=== PATIENT | male | born 1990 | race Caucasian/White ===

== ENCOUNTER → 2017-07-07 | Outpatient (CLI) | payer BC ==
[~2017-07-07] MED LIST: LEV500 PO; LOR5 PO; METR-1 PO; NO ROUTINE MEDS; OTC ANTIHISTAMINE
--- NOTE | 2017-07-07 12:06 | RADIOLOGY IMAGING REPORT ---
FACILITY: [facility] PATIENT NAME: Garry Rodríguez : 1990 MR: [id number] V: [id number] EXAM DATE: ORDERING PHYSICIAN: BENJAMIN BECKER TECHNOLOGIST: Location: [facility] Patient: Garry Rodríguez : 1990 Visit/Account:[id number] Date of Sevice: 07/07/2017 Exam type: CHEST PA AND LAT History: Chronic cough Comparison: 10/06/2014. Findings: Both lungs are well-expanded and clear. There is no focal consolidation, pleural effusion or pneumot horax. Heart size is normal. The osseous structures are unremarkable. IMPRESSION: 1. No acute cardiopulmonary disease. Report Dictated By: Jose L Montoya MD at 07/07/2017 11:59 AM Report E-Signed By: Jose L Montoya MD at 07/07/2017 12:01 PM WSN:[email or web address]
== END ==
LOC: RAD 11:16
PROVIDERS: ATTEND Nurse Practitioner Family
DX: R05 Cough (principal)
CPT/HCPCS: 71046

== ENCOUNTER → 2017-07-08 | Outpatient (CLI) | payer BC, OTHER | LOC: RESP 02:37 | PROVIDERS: ATTEND Nurse Practitioner Family | DX: R05 Cough (principal) | CPT/HCPCS: 94060; 94726; 94729 ==

== ENCOUNTER → 2017-08-17 | Outpatient (CLI) | payer BC ==
[~2017-08-17] MED LIST changes: +BARIUM SULFATE 176 GM BTL PO ONE; +BARIUM SULFATE 340 GM POWD ONE
--- NOTE | 2017-08-17 17:58 | RADIOLOGY IMAGING REPORT ---
FACILITY: [facility] PATIENT NAME: Garry Rodríguez : 1990 MR: [id number] V: [id number] EXAM DATE: [id number] ORDERING PHYSICIAN: EDDIE NJ TECHNOLOGIST: Location: [facility] Patient: Garry Rodríguez : 1990 Visit/Account:[id number] Date of Sevice: 08/17/2017 Exam type: ESOPHAGRAM History: Hoarseness, shortness of breath since May Comparison: None. Findings: Double contrast esophagram was performed with thick and thin barium. Fluoroscopic spot images were o btained over the hypopharynx cervical and thoracic portions of the esophagus and the lower esophageal sphincter. There is no demonstration of mucosal erosions or narrowing within the esophagus. There is a small hiatal hernia. A small amount of gastroesophageal reflux was observed. The fluoroscopy d ose area product was 604.04 micro-Freedman per meter squared. IMPRESSION: 1. Small hiatal hernia and a small amount of gastroesophageal reflux although no evidence of mucosal erosion or focal narrowing. Report Dictated By: Gloria Jimenez MD at 08/17/2017 5:52 PM Report E-Signed By: Gloria Jimenez MD at 08/17/2017 5:53 PM WSN:[email or web address]
== END ==
LOC: RAD 01:19
PROVIDERS: ATTEND Otolaryngology
DX: K44.9 Diaphragmatic hernia without obstruction or gangrene (principal)
CPT/HCPCS: 74220

== ENCOUNTER 2017-11-10 00:12 | Day surgery (SDC) | payer BC ==
[~2017-11-10] VITALS: Ht 180.3 cm; Wt 134.7 kg
[~2017-11-10 00:12] MED LIST changes: +ATOR10TA24 PO; -BARIUM SULFATE 176 GM BTL PO ONE; -BARIUM SULFATE 340 GM POWD ONE; +GUAI1TBM PO; +LORA10CA3 PO; +METO25TA23 PO; +MONT10TA PO; +PANT40TA65 PO; +RANI-345 PO
[2017-11-10] MEDS ORDERED: PROPOFOL EMUL(*) 10MG/ML 20 ML 40 ML ONE (06:57)
[2017-11-10] MEDS ORDERED: GLYCOPYRROLATE 0.2MG/ML 1 ML INJ ONE (07:04)
[2017-11-10 08:17] VITALS: BP 126/84
[2017-11-10] MEDS ORDERED: LIDOCAINE/SOD BICARB 8.4% SYR ID ONE (09:20)
[2017-11-10] MEDS ORDERED: NORMOSOL R SOLN(*) 1000 ML BAG 1,000 ML IV PRN (09:20)
[2017-11-10 10:22] VITALS: BP 109/88
--- NOTE | 2017-11-10 10:24 | Short(Outpt) Discharge Summary ---
Discharge Summary Reason for Hosp/Final Diag: (1) GERD (gastroesophageal reflux disease) Status: Chronic Hospital Course & Plan: EGD completed without problems. (2) Hoarseness of voice Status: Chronic Departure Discharge to: Home, Self Care Discharge Instructions Home Meds Reported Medications Guaifenesin/Dextromethorphan (MUCINEX DM ER 1,200-60 MG TAB) 1 Each Tbmp.12hr, 1 EACH PO Q12H 10/15/17 Atorvastatin Calcium (LIPITOR) 10 Mg Tablet, 1 TAB PO QDAY, TAB 10/15/17 Pantoprazole Sodium (PANTOPRAZOLE SODIUM) 40 Mg Tablet.dr, 2 TAB PO QDAY, TAB.SR 10/15/17 Metoprolol Succinate (METOPROLOL SUCCINATE) 25 Mg Tab.er.24h, 1 TAB PO QDAY, TAB 10/15/17 Loratadine (CLARITIN) 10 Mg Capsule, 1 TAB PO QDAY Y for PRN, CAPSULE 10/15/17 Discontinued Reported Medications Ranitidine Hcl (WAL-MAYKEL 150) 150 Mg Tablet, 1 TAB PO QDAY 10/15/17 Montelukast Sodium (SINGULAIR) 10 Mg Tablet, 1 TAB PO QDAY, TAB 10/15/17 Follow up Referrals: Other Referral Follow up with Dr. Tito Isabel with ENT Diet: Regular Activity: As Tolerated Special Instructions: Your upper GI endoscopy was completed without any problems. I didn't find any abnormalities. All of the tissues in your esophagus, stomach, and duodenum appear normal with inflamation, ulceration, or other abnormalities. Continue taking pantoprazole for your reflux and follow up with your ENT physician, Dr. Isabel. Problem Qualifiers (1) GERD (gastroesophageal reflux disease): Esophagitis presence: without esophagitis Qualified Codes: K21.9 - Gastro- esophageal reflux disease without esophagitis DARRON REYES MD Nov 10, 2017 10:24
[2017-11-10 10:30] VITALS: BP 107/68
[2017-11-10 10:45] VITALS: BP 117/79
[2017-11-10 11:52] VITALS: BP 125/88
[2017-11-10 11:54] VITALS: BP 109/79
== END 2017-11-10 11:25 | disposition home or self-care (01) ==
LOC: OR 00:12
PROVIDERS: ATTEND Surgery
DX: K21.9 Gastro-esophageal reflux disease without esophagitis (principal)
CPT/HCPCS: 43235; J2704; J3490